=== PATIENT | male | born 1995 | race Hispanic/Latino ===

== ENCOUNTER 2017-01-29 19:45 | Emergency (ER) | payer OTHER ==
[~2017-01-29] VITALS: Ht 167.6 cm; Wt 104.3 kg
[2017-01-29 19:53] VITALS: BP 124/74
--- NOTE | 2017-01-29 20:04 | ED ANIMAL BITE/WOUND CHECK ---
History of Present Illness General Chief Complaint: Animal/Insect Bite Stated Complaint: DOG BITE Source: patient, family Exam Limitations: no limitations Vital Signs & Intake/Output Vital Signs & Intake/Output Vital Signs Date Time Temp Pulse Resp B/P Pulse O2 O2 Flow FiO2 Ox Delivery Rate 01/29 1953 98.3 89 15 124/74 100 Room Air Allergies Uncoded Allergies: Allergy Other NKA Med Allergies NKDA Triage Note: PT TO ED FOR SUPERFICIAL DOG BITE TO INSIDE OF R WRIST. PT BELIEVES THE DOG IS UTD ON VACCINES BUT "I DIDNT KNOW THE DOG AND THE AUTOMATIC PROFILE SHAPER OPERATOR SAID THEY WERE UP TO DATE". Past History Travel History Traveled to [place] past 21 day No Medical History Neurological: NONE EENT: NONE Cardiovascular: NONE Respiratory: NONE Gastrointestinal: NONE Hepatic: NONE Renal: NONE Musculoskeletal: NONE Psychiatric: NONE Endocrine: NONE Blood Disorders: NONE Cancer(s): NONE Psychosocial History What is your primary language [place] Tobacco Use: Never used ETOH Use: denies use Illicit Drug Use: denies illicit drug use Departure Departure Condition: Stable Referrals: LUANNE WHITT,BECCA Doan (PCP/Family) Departure Forms: Customer Survey General Discharge Information
--- NOTE | 2017-01-29 20:06 | ED UPPER/LOWER EXTREMITY COMPL ---
History of Present Illness General Chief Complaint: Animal/Insect Bite Stated Complaint: DOG BITE Source: patient, family Exam Limitations: no limitations Vital Signs & Intake/Output Vital Signs & Intake/Output Vital Signs Date Time Temp Pulse Resp B/P Pulse O2 O2 Flow FiO2 Ox Delivery Rate 01/29 1953 98.3 89 15 124/74 100 Room Air Allergies Uncoded Allergies: Allergy Other NKA Med Allergies NKDA Reconcile Medications Amoxicillin/Potassium Clav (Augmentin 875-125 Tablet) 875 MG-125 MG TABLET 1 TAB PO BID infection prevention Ibuprofen 600 MG TABLET 1 TAB PO TID PRN pain with food Triage Note: PT TO ED FOR SUPERFICIAL DOG BITE TO INSIDE OF R WRIST. PT BELIEVES THE DOG IS UTD ON VACCINES BUT "I DIDNT KNOW THE DOG AND THE DEPUTY CHIEF SHERIFF SAID THEY WERE UP TO DATE". Triage Nurses Notes Reviewed? yes Onset: Abrupt Duration: minute(s): Timing: single episode today Severity: mild, moderate Pain/Injury Location: Right: Wrist. Method of Injury: dog bite Modifying Factors: Improves With: rest. Worsens With: movement. Associated Symptoms: skin abrasion and swelling HPI: 21 yo gentleman in prior good health presents after being bit by a dog. The dog lived in a neighborhood house, had shots up to date, was behaving normally. "He came out and bit me on the wrist and then just walked away." He notes that he has pain and swelling, but is able to move his wrist, hadn, and fingers without problem. Past History Travel History Traveled to [place] past 21 day No Medical History Any Pertinent Medical History? see below for history Neurological: NONE EENT: NONE Cardiovascular: NONE Respiratory: NONE Gastrointestinal: NONE Hepatic: NONE Renal: NONE Musculoskeletal: NONE Psychiatric: NONE Endocrine: NONE Blood Disorders: NONE Cancer(s): NONE Surgical History Surgical History: none Psychosocial History What is your primary language Chilean Tobacco Use: Never used ETOH Use: denies use Illicit Drug Use: denies illicit drug use Family History Hx Contributory? No Review of Systems Review of Systems Constitutional: Reports: no symptoms. EENTM: Reports: no symptoms. Respiratory: Reports: no symptoms. Cardiovascular: Reports: no symptoms. Gastrointestinal/Abdominal: Reports: no symptoms. Genitourinary: Reports: no symptoms. Musculoskeletal: Reports: no symptoms. Skin: Reports: no symptoms. Neurological/Psychological: Reports: no symptoms. Hematologic/Endocrine: Reports: no symptoms. Immunological: Reports: no symptoms. All Other Systems: Reviewed and Negative Physical Exam Physical Exam General Appearance: well developed/nourished, mild distress Head: atraumatic Eyes: Bilateral: PERRL, EOMI. Ears, Nose, Throat: normal pharynx, normal ENT inspection, hearing grossly normal Neck: normal inspection, supple Cardiovascular/Respiratory: regular rate/rhythm Back: normal inspection Hand Right: two semi-lunar shaped abrasions on medial right wrist. ROM intact, mild swelling noted. pt able to move hand and fingers without problem, strength intact. Skin: intact, normal color, warm/dry Lymphatic: no anterior cervical clarisa Progress Differential Diagnosis: dog bite vs abrasion. Plan of Care: Current Medications Sig/Juan Start time Last Medication Dose Stop Time Status Admin Amoxicillin/ 1,000 MG ONCE ONE 01/29 2015 [facility] Clavulanate Potassium 01/30 2016 (Augmentin) Ibuprofen 800 MG ONCE ONE 01/29 2015 [facility] (Motrin) 01/30 2016 Tetanus/Diphtheria 0.5 ML ONCE ONE 01/29 2015 [facility] Toxoids Adsorbed 01/30 2016 (Decavac) Departure Departure Disposition: HOME OR SELF CARE Condition: Stable Clinical Impression Primary Impression: Dog bite of arm Referrals: LUANNE WHITT,BECCA Doan Departure Forms: Customer Survey General Discharge Information Prescriptions: Current Visit Scripts Amoxicillin/Potassium Clav (Augmentin 875-125 Tablet) 1 TAB PO BID #14 TAB Ibuprofen 1 TAB PO TID PRN pain #30 TAB with food Comments pt given tetanus shot, augmentin, bacitracin bandage placed. close follow up in 2 days advised... wrote for 7 days of augmentin.
[2017-01-29] MEDS ORDERED: IBUPROFEN600 M1 PO (20:08)
[2017-01-29] MEDS ORDERED: AUGMENTIN 875-1 EACH PO (20:08)
== END 2017-01-29 20:45 ==
LOC: ERH 19:45
DX: S61.551A Open bite of right wrist, initial encounter (principal); W54.0XXA Bitten by dog, initial encounter; Y93.9 Activity, unspecified; Y92.9 Unspecified place or not applicable
CPT/HCPCS: 90471; 90714; J3490

== ENCOUNTER 2017-02-01 18:01 | Emergency (ER) | payer OTHER ==
[~2017-02-01] VITALS: Ht 167.6 cm; Wt 104.3 kg
[~2017-02-01 18:01] MED LIST: AUGMENTIN 875-1 EACH PO; IBUPROFEN600 M1 PO
[2017-02-01 18:06] VITALS: BP 120/74
--- NOTE | 2017-02-01 18:14 | ED GENERAL ADULT ---
History of Present Illness General Chief Complaint: Animal/Insect Bite Stated Complaint: PT HAS DOG BITE NEED TO BE CHECK Source: patient Exam Limitations: no limitations Vital Signs & Intake/Output Vital Signs & Intake/Output Vital Signs Date Time Temp Pulse Resp B/P Pulse O2 O2 Flow FiO2 Ox Delivery Rate 02/01 1806 97.7 77 16 120/74 99 Room Air Allergies Coded Allergies: No Known Allergies (01/29/17) Reconcile Medications Amoxicillin/Potassium Clav (Augmentin 875-125 Tablet) 875 MG-125 MG TABLET 1 TAB PO BID infection prevention Ibuprofen 600 MG TABLET 1 TAB PO TID PRN pain with food Triage Note: PT HERE FOR WOUND CHECK. Triage Nurses Notes Reviewed? yes Onset: Abrupt Duration: day(s): Timing: recent history HPI: 02/01/17 21-year-old male presents to the emergency department for wound check. Status post dog bite to the right wrist. This occurred several days ago. He was seen and evaluated in the emergency Department and is currently on Augmentin. The onset of the symptoms were abrupt, the duration has been several days, the severity is significant; as his symptoms required him to the emergency department for care. He has no complaints. No fever, less pain. No discharge. On physical exam he does have a significant ecchymosis and U shaped abrasion to the volar aspect of his right wrist. There is no discharge, there is no erythema. The wound is healing well. He will continue to take the Augmentin and follow up as needed. Past History Travel History Traveled to [place] past 21 day No Medical History Any Pertinent Medical History? see below for history Neurological: NONE EENT: NONE Cardiovascular: NONE Respiratory: NONE Gastrointestinal: NONE Hepatic: NONE Renal: NONE Musculoskeletal: NONE Psychiatric: NONE Endocrine: NONE Blood Disorders: NONE Cancer(s): NONE Tetanus Vaccine: 01/29/17 Surgical History Surgical History: none Psychosocial History What is your primary language Japanese Tobacco Use: Never used ETOH Use: occasional use Illicit Drug Use: denies illicit drug use Family History Hx Contributory? No Review of Systems Review of Systems Constitutional: Denies: fever. EENTM: Reports: no symptoms. Respiratory: Reports: no symptoms. Cardiovascular: Reports: no symptoms. GI: Reports: no symptoms. Genitourinary: Reports: no symptoms. Musculoskeletal: Reports: see HPI. Skin: Reports: see HPI. Neurological/Psychological: Reports: no symptoms. Hematologic/Endocrine: Reports: bruising. Physical Exam Physical Exam General Appearance: well developed/nourished, alert, awake, anxious, mild distress Head: atraumatic, normal appearance Eyes: Bilateral: normal appearance, PERRL, EOMI. Ears, Nose, Throat: normal ENT inspection Neck: normal inspection, full range of motion Respiratory: no respiratory distress Peripheral Pulses: 4+ radial (R) Back: normal range of motion Extremities: ecchymosis and U shaped abrasion right volar wrist Radial ulnar and median nerve function intact No edema Neurologic/Psych: no motor/sensory deficits, awake, alert, oriented x 3, normal gait Skin: intact Core Measures ACS in differential dx? No CVA/TIA Diagnosis: No Severe Sepsis Present: No Septic Shock Present: No Progress Differential Diagnoses I considered the following diagnoses in my evaluation of the patient: [Wound infection, abscess, nerve injury, tendon injury, compartment syndrome] Plan of Care: Follow-up as needed, continue the Augmentin. Initial ED EKG: none Departure Departure Disposition: HOME OR SELF CARE Condition: Stable Clinical Impression Primary Impression: Dog bite of right wrist Referrals: UNKNOWN (PCP/Family) Departure Forms: Customer Survey General Discharge Information Critical Care Note Critical Care Note Critical Care Time: non-applicable
== END 2017-02-01 18:17 ==
LOC: ERH 18:01
DX: Z48.01 Encounter for change or removal of surgical wound dressing (principal)
CPT/HCPCS: 99281